=== PATIENT | female | born 2000 | race Caucasian/White ===

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

== ENCOUNTER 2021-02-09 23:45 | Emergency (ER) | payer MEDICAID ==
[~2021-02-09] VITALS: Ht 152.4 cm; Wt 56.7 kg
[2021-02-09 23:50] VITALS: BP 113/47
--- NOTE | 2021-02-09 23:59 | NUR ---
PT TAKEN TO BED 2
[2021-02-10] MEDS ORDERED: LIDOCAINE MPF 1% 10 MG/ML VIAL IM ONE (00:30)
[2021-02-10 02:50] VITALS: BP 116/59
--- NOTE | 2021-02-10 02:53 | NUR ---
PATIENT DC HOME FEELING WELL STABLE VITALS SIGNS IN NORMAL LIMITS ALL DC INSTRUCTION GAVE AND EXPLAINED TO THE PATIENT //Man REYES
[2021-02-11] MEDS ORDERED: ONDA-188 SL (11:22)
== END 2021-02-10 02:53 | disposition home or self-care (01) ==
LOC: MED 23:45
DX: M54.9 Dorsalgia, unspecified (principal); M79.10 Myalgia, unspecified site
CPT/HCPCS: 20553; 81002; 81025; 99284; J2001; 96372; 99283

== ENCOUNTER 2021-02-11 09:24 | Emergency (ER) | payer MEDICAID ==
[~2021-02-11] VITALS: Ht 152.4 cm; Wt 54.4 kg
[2021-02-11 09:30] VITALS: BP 118/89
--- NOTE | 2021-02-11 09:34 | NUR ---
PT AMB TO BED 4.
[2021-02-11] MEDS ORDERED: ONDANSETRON 4 MG ODT PO ONE (09:50)
[2021-02-11] MEDS ORDERED: KETOROLAC 30 MG/ML VIAL IM ONE (09:50)
--- NOTE | 2021-02-11 09:52 | NUR ---
20 YEARS OLD FEMALE WALKING TO ER C/O ABDOMINAL PAIN WITH NAUSEA VOMITING.PATIENT COMFORTABLE AT PRESENT NO ACTIVE DISTRESS WILL CONTINUE TO MONITOR.
[2021-02-11 10:34] LABS: BASOPHILS % (AUTO) 0.2 % (0.0-2.0); EOSINOPHILS # (AUTO) 0.3 K/uL (0-0.4); EOSINOPHILS % (AUTO) 2.6 % (0.0-4.0); HEMATOCRIT 41.3 % (36-48); HEMOGLOBIN 14.1 g/dL (12.0-16.0); LYMPHOCYTES # (AUTO) 1.7 K/uL (2.5-16.5); LYMPHOCYTES % (AUTO) 16.9 % (20.5-51.1); MEAN CORPUSCULAR HEMOGLOBIN 32 pg (27-31); MEAN CORPUSCULAR HGB CONC 34 g/dL (33-37); MEAN CORPUSCULAR VOLUME 92.5 fL (80-94); MONOCYTES # (AUTO) 0.6 K/uL (0.8-1.0); MONOCYTES % (AUTO) 5.9 % (1.7-9.3); NEUTROPHILS # (AUTO) 7.7 K/uL (1.8-7.7); NEUTROPHILS % (AUTO) 74.4 % (42.2-75.2); PLATELET COUNT (AUTO) 311 K/uL (140-450); RED BLOOD CELL COUNT(AUTO) 4.47 MIL/uL (4.20-5.40); RED CELL DISTRIBUTION WIDTH 12.7 % (11.6-13.7); WHITE BLOOD COUNT (AUTO) 10.3 K/uL (4.8-10.8)
[2021-02-11 11:00] LABS: ALBUMIN 4.6 g/dL (3.4-5.0); ANION GAP 12.6 (8-16); CARBON DIOXIDE 26.7 mmol/L (21-32); CREATININE 0.7 mg/dL (0.6-1.3); POTASSIUM 3.3 mmol/L (3.5-5.1); TOTAL BILIRUBIN 0.6 mg/dL (0.0-1.0)
[2021-02-11] MEDS ORDERED: POTASSIUM CHLORIDE 10 MEQ TABER PO ONE (11:20)
[2021-02-11] MEDS ORDERED: ONDA-188 SL (11:22)
--- NOTE | 2021-02-11 11:40 | NUR ---
PATIENT REASSESS TOLERATED PO INTAKE NO NAUSEA VOMITING, CONDITION STABLE D/C HOME WITH INSTRUCTIONS AFTER CARE REVIEWED UNDERSTOOD LEFT ER AMBULATORY WITH STEADY GAIT.
[2021-02-11 11:45] VITALS: BP 110/70
== END 2021-02-11 11:45 | disposition home or self-care (01) ==
LOC: MED 09:24
DX: R11.10 Vomiting, unspecified (principal); R10.31 Right lower quadrant pain; E87.6 Hypokalemia; M25.551 Pain in right hip; F12.10 Cannabis abuse, uncomplicated
CPT/HCPCS: 36415; 80053; 81002; 81025; 83690; 85025; 96372; 99283; J1885; Q0162

== ENCOUNTER 2022-02-15 12:24 | Emergency (ER) | payer MEDICAID ==
[~2022-02-15] VITALS: Ht 152.4 cm; Wt 54.0 kg
[~2022-02-15 12:24] MED LIST: ONDA-188 SL
[2022-02-15 12:29] VITALS: BP 134/82
--- NOTE | 2022-02-15 12:34 | NUR ---
PT AMBULATED TO BED 7
--- NOTE | 2022-02-15 12:45 | NUR ---
21YO FEMALE PT C/O LOWER EXTREMITY NUMBING AND INCREASED LOWER BACK PAIN X3DAYS. REPORTS L5 HERNIATED DISK FROM LIFTING INJURY X1.5YEARS. NOTES NUMBING AT MOST RAY BELOW KNEE AND INCONTINENCE. STATES MILD LOSS OF SENSATION THROUGHOUT R FOOT. DENIES RECENT NEW INJURY, N/V/D, CHEST PAIN, SOB , FEVER OR CHILLS. PT AAOX4, AMULATORY W/ STEADY GAIT. ON CAREER DEVELOPMENT ENGINEER. HX: HERNIATED DISK NKA
[2022-02-15 13:39] LABS: BASOPHILS % (AUTO) 0.5 % (0.0-2.0); EOSINOPHILS # (AUTO) 0.5 K/uL (0-0.4); EOSINOPHILS % (AUTO) 7.7 % (0.0-4.0); HEMATOCRIT 40.1 % (36-48); HEMOGLOBIN 13.7 g/dL (12.0-16.0); LYMPHOCYTES # (AUTO) 2.1 K/uL (2.5-16.5); MEAN CORPUSCULAR HEMOGLOBIN 31 pg (27-31); MEAN CORPUSCULAR HGB CONC 34 g/dL (33-37); MEAN CORPUSCULAR VOLUME 90.8 fL (80-94); MONOCYTES # (AUTO) 0.5 K/uL (0.8-1.0); MONOCYTES % (AUTO) 7.2 % (1.7-9.3); NEUTROPHILS # (AUTO) 3.4 K/uL (1.8-7.7); NEUTROPHILS % (AUTO) 52.6 % (42.2-75.2); PLATELET COUNT (AUTO) 385 K/uL (140-450); RED BLOOD CELL COUNT(AUTO) 4.42 MIL/uL (4.20-5.40); RED CELL DISTRIBUTION WIDTH 12.5 % (11.6-13.7); WHITE BLOOD COUNT (AUTO) 6.5 K/uL (4.8-10.8)
[2022-02-15 13:47] LABS: APPEARANCE,URINE HAZY (CLEAR); BILIRUBIN,URINE NEGATIVE (NEGATIVE); BLOOD, URINE NEGATIVE (NEGATIVE); COLOR,URINE YELLOW (YELLOW); LEUKOCYTE ESTERASE ,URINE 1+ (NEGATIVE); NITRITE, URINE NEGATIVE (NEGATIVE); UGLUCOSE NEGATIVE (NEGATIVE)
[2022-02-15 14:03] LABS: ALBUMIN 4.3 g/dL (3.4-5.0); ANION GAP 15.3 (8-16); CARBON DIOXIDE 24.2 mmol/L (21-32); CREATININE 0.7 mg/dL (0.6-1.3); POTASSIUM 3.5 mmol/L (3.5-5.1); TOTAL BILIRUBIN 0.7 mg/dL (0.0-1.0)
[2022-02-15 14:07] LABS: RBC,URINE 0-5 /HPF (0-5)
--- NOTE | 2022-02-15 15:07 | NUR ---
PT TAKEN TO CT VIA WHEELCHAIR
--- NOTE | 2022-02-15 15:23 | NUR ---
PT BROUGHT BACK VIA WHEELCHAIR
[2022-02-15] MEDS ORDERED: MORPHINE SULFATE 4 MG/ML SYR IVP ONE (15:35)
[2022-02-15] MEDS ORDERED: MORPHINE SULFATE 4 MG/ML SYR IVP PRN (15:35)
[2022-02-15 17:50] VITALS: BP 117/61
--- NOTE | 2022-02-15 19:30 | NUR ---
21 Y/O F pt presents with herniated disc injury 1.5yr ago, L5S1. pt states pain 8/10 with numbing in lower extremities and R foot. pt deneis NVD. skin intact, pt AOx4, IV L arm, supine flat. bed at lowest position side rails up x2. NKDA PMH- herniated disc 1.5yr ago
--- NOTE | 2022-02-15 19:33 | NUR ---
REPORT GIVEN TO TOMY SMART. TRANSFER OF CARE AT THIS TIME
--- NOTE | 2022-02-15 20:30 | NUR ---
awaiting approval from insurance for MRI
--- NOTE | 2022-02-15 22:30 | NUR ---
Jordan alatorre in [facility] - 02/15/22 at 2346 by KENDALPB pt requesting keshia
--- NOTE | 2022-02-15 22:30 | NUR ---
pt requesting AMA. Beulah REYES at bedside informing pt the risk of leaving AMA, Dr. Maher aware, pt given AMA form, pt and Dr. Maher signed AMA form. IV D/C from pts L arm and pt wristband removed.
--- NOTE | 2022-02-15 22:42 | NUR ---
Patient does not wish to proceed with medical care recommended by Dr. Maher. Patient given information related to possible complications, up to and including , which could occur as a result of leaving hospital at this time. Patient verbalizes understanding of risks involved leaving against medical advice. Patient has signed AMA form.
== END 2022-02-15 13:15 | disposition home or self-care (01) ==
LOC: MED 12:24
DX: M54.50 Low back pain, unspecified (principal); R20.0 Anesthesia of skin; Z79.899 Other long term (current) drug therapy
CPT/HCPCS: 36415; 72132; 80053; 81001; 81025; 85025; 87086; 96374; 99285; J2270; Q9967

== ENCOUNTER 2023-09-12 21:35 | Emergency (ER) | payer MEDICAID ==
[~2023-09-12] VITALS: Ht 172.7 cm; Wt 54.4 kg
[2023-09-12 22:33] VITALS: BP 121/86; PULSE 74; RESP 18; TEMP 98.5; O2SAT 98
== END 2023-09-13 02:02 | disposition home or self-care (01) ==
LOC: MED 21:35
DX: S63.601A Unspecified sprain of right thumb, initial encounter (principal); Z79.1 Long term (current) use of non-steroidal anti-inflammatories (NSAID); X50.9XXA Other and unspecified overexertion or strenuous movements or postures, initial encounter; Y93.01 Activity, walking, marching and hiking; Y92.89 Other specified places as the place of occurrence of the external cause; Y99.8 Other external cause status
CPT/HCPCS: 73130; 99283